=== PATIENT | female | born 1995 | race Caucasian/White ===

== ENCOUNTER → 2017-09-22 17:00 | Outpatient (CLI) | payer MEDICAID, SELFPAY ==
[2017-09-22 18:16] LABS: Vitamin D,25 Hydroxy 17.3 ng/mL (29.95-100.01)
== END ==
PROVIDERS: Visit Provider Obstetrics & Gynecology
DX: E28.2 Polycystic ovarian syndrome (principal)
CPT/HCPCS: 36415; 82306; 83036

== ENCOUNTER 2018-01-19 17:00 | Outpatient (RCR) | payer SELFPAY | END 2018-01-23 23:59 | LOC: NS 17:00 | PROVIDERS: Visit Provider Obstetrics & Gynecology | DX: E66.01 Morbid (severe) obesity due to excess calories (principal); E28.1 Androgen excess; E16.1 Other hypoglycemia; Z71.3 Dietary counseling and surveillance | CPT/HCPCS: 97802; 97803 ==

== ENCOUNTER 2018-02-09 17:00 | Outpatient (RCR) | payer SELFPAY ==
[2017-03-05 04:08] VITALS: BMI 43.9
== END 2018-02-09 23:59 | disposition home or self-care (01) ==
LOC: NS 17:00
PROVIDERS: Visit Provider Obstetrics & Gynecology
DX: E66.01 Morbid (severe) obesity due to excess calories (principal); E28.1 Androgen excess; E16.1 Other hypoglycemia; Z71.3 Dietary counseling and surveillance
CPT/HCPCS: 97803